=== PATIENT | female | born 1940 | race Caucasian/White ===

== ENCOUNTER 2016-11-04 07:36 | Outpatient (CLI) | payer MEDICARE ==
[2016-11-04 09:10] LABS: ALT (SGPT) 26 U/L (8-55); AST (SGOT) 27 U/L (5-34); Albumin 4.4 g/dL (3.4-4.8); Alkaline Phosphatase 78 U/L (40-150); Anion Gap 13 mmol/L (10-20); BUN (Urea Nitrogen) 20 mg/dL (9.8-20.1); Bilirubin, Total 0.7 mg/dL (0.2-1.2); Calc. Creatinine Clearance 0 mL/min (70-130); Calcium 9.8 mg/dL (7.8-10.44); Carbon Dioxide 27 mmol/L (23-31); Cardiac Risk 3.3 (Less than 4.5); Chloride 105 mmol/L (98-107); Cholesterol 124 mg/dl (< 200 Desired); Estimated GFR-MDRD 58; Globulin 2.7 g/dL (2.4-3.5); Glucose 91 mg/dL (83-110); HDL Cholesterol 38 mg/dL (>60 Neg Risk); LDL Cholesterol, Calculated 69 mg/dL; Potassium 3.3 mmol/L (3.5-5.1); Protein, Total 7.1 g/dL (6.0-8.3); Sodium 142 mmol/L (136-145); Triglycerides 83 mg/dL (Less than 150)
== END 2016-11-04 07:37 | disposition home or self-care (01) ==
LOC: BURLAB 07:36
PROVIDERS: ATTEND Internal Medicine Cardiovascular Disease
DX: E78.00 Pure hypercholesterolemia, unspecified (principal)
CPT/HCPCS: 36415; 80053; 80061

== ENCOUNTER 2021-06-07 16:38 | Outpatient (CLI) | payer MEDICARE | END 2021-06-07 16:39 | disposition home or self-care (01) | LOC: BURRAD 16:38 | PROVIDERS: ATTEND Nurse Practitioner Family | DX: M79.602 Pain in left arm (principal); M18.12 Unilateral primary osteoarthritis of first carpometacarpal joint, left hand ==

== ENCOUNTER 2022-04-10 13:28 | Inpatient (IN) | payer MEDICARE ==
[2022-04-10] MEDS ORDERED: traMADol HCl 50 MG TAB PO PRN (21:41)
[2022-04-10] MEDS ORDERED: cloNIDine 0.1 MG TAB PO PRN (21:41)
[2022-04-10] MEDS ORDERED: Bisacodyl 10 MG SUPP PR PRN (21:45)
[2022-04-10] MEDS ORDERED: Bisacodyl 5 MG TAB PO PRN (21:45)
[2022-04-10] MEDS ORDERED: Senokot S 8.6-50 MG TAB PO PRN (21:45)
[2022-04-10] MEDS ORDERED: Enoxaparin Sodium 40 MG/0.4 ML SYRINGE SC SCH (22:15)
[2022-04-10] MEDS ORDERED: Pregabalin 75 MG CAP PO SCH (22:45)
[2022-04-10] MEDS ORDERED: Losartan Potassium 50 MG TAB PO SCH (22:45)
[2022-04-11] MEDS: Acetaminophen 325 MG TAB PO PRN (01:54)
[2022-04-11 05:08] LABS: #Basophils 0.1 thou/uL (0.0-0.2); #Eosinphils 0.1 thou/uL (0.0-0.7); #Lymphocytes 1.4 thou/uL (1.20-3.40); #Monocytes 0.6 thou/uL (0.11-0.59); #Neutrophils 4.5 thou/uL (1.40-6.50); %Basophils 0.8 % (0.0-1.0); %Lymphocytes 20.3 % (21.0-51.0); %Monocytes 9.6 % (0.0-10.0); %Neutrophils 67.3 % (42.0-75.0); Hemoglobin 10.6 g/dL (12.0-16.0); Mean Corpuscular HGB CONC 34.4 g/dL (32.0-36.0); Mean Corpuscular Hemoglobin 31.8 pg (27.0-31.0); Mean Corpuscular Volume 92.2 fl (78.0-98.0); Mean Platelet Volume 7.9 fL (7.4-10.4); Platelet Count 167 thou/uL (130-400); RBC Distribution Width 11.8 % (11.5-14.5); Red Blood Cell (RBC) Count 3.35 mill/uL (4.20-5.40); White Blood Cell (WBC) Count 6.6 thou/uL (4.8-10.8)
[2022-04-11 05:16] LABS: Anion Gap 15 mmol/L (10-20); BUN (Urea Nitrogen) 19 mg/dL (9.8-20.1); Calc. Creatinine Clearance 0 mL/min (70-130); Calcium 8.7 mg/dL (7.8-10.44); Carbon Dioxide 24 mmol/L (23-31); Chloride 104 mmol/L (98-107); Estimated GFR 61; Glucose 104 mg/dL (83-110); Potassium 3.8 mmol/L (3.5-5.1); Sodium 139 mmol/L (136-145)
[2022-04-11] MEDS: Mometasone/Formoterol 200/5 60 PUFF INH PRN (06:08)
[2022-04-11] MEDS: Ezetimibe 10 MG TAB PO SCH (08:34)
[2022-04-11] MEDS: Multivitamin W/ Minerals 1 TAB PO SCH (08:34)
[2022-04-11] MEDS: Cholecalciferol 1,000 UNITS (25 MCG) TAB PO SCH (08:34)
[2022-04-11] MEDS: Aspirin 325 mg Enteric Coated Tablet PO SCH (08:34)
[2022-04-11] MEDS: Potassium Chloride 10 MEQ TAB PO SCH (08:34)
[2022-04-11] MEDS: Cyanocobalamin (Vitamin B-12) 1,000 MCG TAB PO SCH (08:34)
[2022-04-11] MEDS: Montelukast Sodium 10 mg Tablet PO SCH (08:35)
[2022-04-11] MEDS: Pregabalin 75 MG CAP PO SCH ×2 (08:35→20:35)
[2022-04-11] MEDS: traMADol HCl 50 MG TAB PO PRN ×2 (08:35→13:00)
[2022-04-11] MEDS: Folic Acid 1 MG TAB PO SCH (08:35)
[2022-04-11] MEDS: Losartan Potassium 50 MG TAB PO SCH ×2 (08:36→20:35)
[2022-04-11] MEDS: Carvedilol 6.25 MG TAB PO SCH ×3 (08:36→20:34)
[2022-04-11] MEDS: Rosuvastatin 10 MG TAB PO SCH (08:40)
[2022-04-11] MEDS ORDERED: FLU VACC QS2022-23(65YR UP)/PF 240 MCG/0.7 ML SYRINGE IM ONE (09:00)
[2022-04-11] MEDS ORDERED: Mometasone/Formoterol 200/5 60 PUFF INH PRN (09:00)
[2022-04-11] MEDS: Nystatin 500,000 UNITS/5 ML UDCUP SSW SCH ×3 (13:00→20:34)
[2022-04-11 21:25] VITALS: BMI 21.4
[2022-04-12] MEDS: Mometasone/Formoterol 200/5 60 PUFF INH PRN (00:57)
[2022-04-12] MEDS: traMADol HCl 50 MG TAB PO PRN ×2 (06:59→14:10)
[2022-04-12] MEDS: Ondansetron ODT 4 MG TAB PO PRN ×2 (08:27→15:55)
[2022-04-12] MEDS: Losartan Potassium 50 MG TAB PO SCH ×2 (09:09→20:47)
[2022-04-12] MEDS: Cholecalciferol 1,000 UNITS (25 MCG) TAB PO SCH (09:10)
[2022-04-12] MEDS: Aspirin 325 mg Enteric Coated Tablet PO SCH (09:10)
[2022-04-12] MEDS: Potassium Chloride 10 MEQ TAB PO SCH (09:10)
[2022-04-12] MEDS: Pregabalin 75 MG CAP PO SCH ×2 (09:10→20:45)
[2022-04-12] MEDS: Cyanocobalamin (Vitamin B-12) 1,000 MCG TAB PO SCH (09:10)
[2022-04-12] MEDS: Carvedilol 6.25 MG TAB PO SCH ×3 (09:10→20:44)
[2022-04-12] MEDS: Montelukast Sodium 10 mg Tablet PO SCH (09:11)
[2022-04-12] MEDS: Nystatin 500,000 UNITS/5 ML UDCUP SSW SCH ×4 (09:11→20:45)
[2022-04-12] MEDS: Folic Acid 1 MG TAB PO SCH (09:11)
[2022-04-12] MEDS: Ezetimibe 10 MG TAB PO SCH (09:11)
[2022-04-12] MEDS: Multivitamin W/ Minerals 1 TAB PO SCH (09:11)
[2022-04-12] MEDS: Rosuvastatin 10 MG TAB PO SCH (09:12)
[2022-04-12] MEDS: Albuterol Sulfate 2.5 mg/3 ml Neb NEB PRN (09:15)
[2022-04-12] MEDS: Mometasone/Formoterol 200/5 60 PUFF INH SCH (20:46)
[2022-04-12] MEDS: Acetaminophen 325 MG TAB PO PRN (23:09)
[2022-04-13] MEDS: Potassium Chloride 10 MEQ TAB PO SCH (09:18)
[2022-04-13] MEDS: Losartan Potassium 50 MG TAB PO SCH ×2 (09:19→20:46)
[2022-04-13] MEDS: Aspirin 325 mg Enteric Coated Tablet PO SCH (09:19)
[2022-04-13] MEDS: Cyanocobalamin (Vitamin B-12) 1,000 MCG TAB PO SCH (09:19)
[2022-04-13] MEDS: Carvedilol 6.25 MG TAB PO SCH ×3 (09:19→20:45)
[2022-04-13] MEDS: Montelukast Sodium 10 mg Tablet PO SCH (09:19)
[2022-04-13] MEDS: Cholecalciferol 1,000 UNITS (25 MCG) TAB PO SCH (09:19)
[2022-04-13] MEDS: Ezetimibe 10 MG TAB PO SCH (09:19)
[2022-04-13] MEDS: Folic Acid 1 MG TAB PO SCH (09:20)
[2022-04-13] MEDS: Multivitamin W/ Minerals 1 TAB PO SCH (09:20)
[2022-04-13] MEDS: Nystatin 500,000 UNITS/5 ML UDCUP SSW SCH ×4 (09:20→20:44)
[2022-04-13] MEDS: Pregabalin 75 MG CAP PO SCH ×2 (09:20→20:46)
[2022-04-13] MEDS: Mometasone/Formoterol 200/5 60 PUFF INH SCH ×2 (09:20→20:49)
[2022-04-13] MEDS: Rosuvastatin 10 MG TAB PO SCH (09:21)
[2022-04-13] MEDS: Acetaminophen 325 MG TAB PO PRN ×2 (14:15→20:44)
[2022-04-14] MEDS: Acetaminophen 325 MG TAB PO PRN (08:41)
[2022-04-14] MEDS: Carvedilol 6.25 MG TAB PO SCH ×3 (08:43→20:52)
[2022-04-14] MEDS: Ezetimibe 10 MG TAB PO SCH (08:45)
[2022-04-14] MEDS: Cyanocobalamin (Vitamin B-12) 1,000 MCG TAB PO SCH (08:45)
[2022-04-14] MEDS: Rosuvastatin 10 MG TAB PO SCH (08:45)
[2022-04-14] MEDS: Montelukast Sodium 10 mg Tablet PO SCH (08:45)
[2022-04-14] MEDS: Nystatin 500,000 UNITS/5 ML UDCUP SSW SCH ×4 (08:45→20:45)
[2022-04-14] MEDS: Pregabalin 75 MG CAP PO SCH ×2 (08:45→20:39)
[2022-04-14] MEDS: Folic Acid 1 MG TAB PO SCH (08:46)
[2022-04-14] MEDS: Potassium Chloride 10 MEQ TAB PO SCH (08:46)
[2022-04-14] MEDS: Losartan Potassium 50 MG TAB PO SCH ×2 (08:46→20:44)
[2022-04-14] MEDS: Aspirin 325 mg Enteric Coated Tablet PO SCH (08:47)
[2022-04-14] MEDS: Cholecalciferol 1,000 UNITS (25 MCG) TAB PO SCH (08:47)
[2022-04-14] MEDS: Multivitamin W/ Minerals 1 TAB PO SCH (08:48)
[2022-04-14] MEDS: traMADol HCl 50 MG TAB PO PRN ×2 (08:50→15:21)
[2022-04-14] MEDS: Mometasone/Formoterol 200/5 60 PUFF INH SCH ×2 (08:51→20:37)
[2022-04-14] MEDS ORDERED: FLU VACC QS2022-23(65YR UP)/PF 240 MCG/0.7 ML SYRINGE IM ONE (14:30)
[2022-04-15] MEDS: Albuterol Sulfate 2.5 mg/3 ml Neb NEB PRN (02:42)
[2022-04-15 06:15] VITALS: TEMP 98.2
[2022-04-15] MEDS: Mometasone/Formoterol 200/5 60 PUFF INH SCH (08:16)
[2022-04-15] MEDS: Ezetimibe 10 MG TAB PO SCH (08:23)
[2022-04-15] MEDS: Carvedilol 6.25 MG TAB PO SCH (08:23)
[2022-04-15] MEDS: Potassium Chloride 10 MEQ TAB PO SCH (08:23)
[2022-04-15] MEDS: Aspirin 325 mg Enteric Coated Tablet PO SCH (08:23)
[2022-04-15] MEDS: Cholecalciferol 1,000 UNITS (25 MCG) TAB PO SCH (08:24)
[2022-04-15] MEDS: Montelukast Sodium 10 mg Tablet PO SCH (08:24)
[2022-04-15] MEDS: Cyanocobalamin (Vitamin B-12) 1,000 MCG TAB PO SCH (08:24)
[2022-04-15] MEDS: Pregabalin 75 MG CAP PO SCH (08:24)
[2022-04-15] MEDS: Losartan Potassium 50 MG TAB PO SCH (08:24)
[2022-04-15] MEDS: Folic Acid 1 MG TAB PO SCH (08:25)
[2022-04-15] MEDS: Multivitamin W/ Minerals 1 TAB PO SCH (08:26)
[2022-04-15] MEDS: Rosuvastatin 10 MG TAB PO SCH (08:27)
[2022-04-15] MEDS: Nystatin 500,000 UNITS/5 ML UDCUP SSW SCH (08:27)
[2022-04-15 08:34] VITALS: BP 170/80
[2022-04-15] MEDS: traMADol HCl 50 MG TAB PO PRN (10:07)
== END 2022-04-15 11:15 | disposition home or self-care (01) | DRG 561 ==
LOC: BURMED 21:30
PROVIDERS: ADMIT Family Medicine; ATTEND Family Medicine
DX: Z47.1 Aftercare following joint replacement surgery (principal); Z20.822 Contact with and (suspected) exposure to COVID-19; I10 Essential (primary) hypertension; E78.5 Hyperlipidemia, unspecified; I25.10 Atherosclerotic heart disease of native coronary artery without angina pectoris; J44.9 Chronic obstructive pulmonary disease, unspecified; Z99.81 Dependence on supplemental oxygen; R53.1 Weakness; Z79.899 Other long term (current) drug therapy; Z79.82 Long term (current) use of aspirin; Z88.6 Allergy status to analgesic agent; Z88.8 Allergy status to other drugs, medicaments and biological substances; Z88.1 Allergy status to other antibiotic agents
CPT/HCPCS: 36415; 80048; 85025; 90471; 90662; 94664; G0008; J7611; Q0162; U0003; U0005

== ENCOUNTER 2023-01-31 14:56 | Emergency (ER) | payer MEDICARE | END 2023-01-31 15:35 | disposition home or self-care (01) | LOC: BURERS 14:56 | DX: S93.401A Sprain of unspecified ligament of right ankle, initial encounter (principal); I10 Essential (primary) hypertension; I25.10 Atherosclerotic heart disease of native coronary artery without angina pectoris; W10.9XXA Fall (on) (from) unspecified stairs and steps, initial encounter; Y93.01 Activity, walking, marching and hiking; Z95.5 Presence of coronary angioplasty implant and graft ==